=== PATIENT | male | born 1980 | race Caucasian/White ===

== ENCOUNTER → 2016-10-06 | Outpatient (CLI) | payer OTHER ==
[2016-10-06 09:30] LABS: ABSOLUTE BASOPHILS # (AUTO) 0.1 10^3/uL (0.0-0.2); ABSOLUTE EOSINOPHILS # (AUTO) 0.3 10^3/uL (0.0-0.6); ABSOLUTE LYMPHOCYTES (AUTO) 2.1 10^3/uL (0.5-4.7); ABSOLUTE MONOCYTES (AUTO) 0.8 10^3/uL (0.1-1.4); ABSOLUTE NEUT (AUTO) 4.3 10^3/uL (1.7-8.2); BASOPHILS % (AUTO) 0.8 % (0-2); EOSINOPHILS % (AUTO) 3.9 % (0-6); HEMATOCRIT 48.2 % (37.9-51.0); HEMOGLOBIN 16.8 g/dL (13.5-17.0); HGB HCT DIFFERENCE 2.2; LYMPHOCYTES % (AUTO) 27.8 % (13-45); MEAN CORPUSCULAR HEMOGLOBIN 30.4 pg (27.0-33.4); MEAN CORPUSCULAR HGB CONC 34.8 g/dL (32.0-36.0); MEAN CORPUSCULAR VOLUME 87 fl (80-97); MONOCYTES % (AUTO) 10.2 % (3-13); RED BLOOD COUNT 5.52 10^6/uL (4.35-5.55); RED CELL DISTRIBUTION WIDTH 12.9 % (11.5-14.0); SEGMENTED NEUTROPHILS % (AUTO) 57.3 % (42-78); WHITE BLOOD COUNT 7.6 10^3/uL (4.0-10.5)
[2016-10-06 09:45] LABS: ALANINE AMINOTRANSFERASE 91 U/L (21-72); ALBUMIN 4.3 g/dL (3.5-5.0); ALKALINE PHOSPHATASE 87 U/L (38-126); ANION GAP 14 (5-19); ASPARTATE AMINO TRANSFERASE 40 U/L (17-59); BILIRUBIN,DIRECT 0.3 mg/dL (0.0-0.4); BILIRUBIN,TOTAL 0.8 mg/dL (0.2-1.3); BLOOD UREA NITROGEN 12 mg/dL (7-20); CALCIUM 9.4 mg/dL (8.4-10.2); CARBON DIOXIDE 25 mmol/L (22-30); CHLORIDE 103 mmol/L (98-107); CHOLESTEROL 177.19 mg/dL (0-200); CREATININE RESULT 0.85 mg/dL (0.52-1.25); Direct HDL 35 mg/dL (>40); GLUCOSE 85 mg/dL (75-110); POTASSIUM 4.4 mmol/L (3.6-5.0); SODIUM 141.7 mmol/L (137-145); TOTAL PROTEIN 7.1 g/dL (6.3-8.2); TRIGLYCERIDES 181 mg/dL (<150)
[2016-10-06 09:56] LABS: DIRECT LDL 116 mg/dL (<100)
[2016-10-06 10:00] LABS: VLDL CHOLESTEROL 36.2 mg/dL (10-31)
== END ==
LOC: CCC 08:02
DX: I10 Essential (primary) hypertension (principal); L40.9 Psoriasis, unspecified
CPT/HCPCS: 36415; 80053; 80061; 83036; 84443; 85025

== ENCOUNTER → 2017-08-19 | Outpatient (CLI) | payer SELFPAY ==
[2017-08-19 10:23] LABS: ABSOLUTE BASOPHILS # (AUTO) 0.1 10^3/uL (0.0-0.2); ABSOLUTE EOSINOPHILS # (AUTO) 0.3 10^3/uL (0.0-0.6); ABSOLUTE LYMPHOCYTES (AUTO) 1.8 10^3/uL (0.5-4.7); ABSOLUTE MONOCYTES (AUTO) 0.6 10^3/uL (0.1-1.4); ABSOLUTE NEUT (AUTO) 3.9 10^3/uL (1.7-8.2); BASOPHILS % (AUTO) 1.2 % (0-2); HEMATOCRIT 49.5 % (37.9-51.0); HEMOGLOBIN 17.2 g/dL (13.5-17.0); LYMPHOCYTES % (AUTO) 27.1 % (13-45); MEAN CORPUSCULAR HEMOGLOBIN 30.1 pg (27.0-33.4); MEAN CORPUSCULAR HGB CONC 34.7 g/dL (32.0-36.0); MEAN CORPUSCULAR VOLUME 87 fl (80-97); MONOCYTES % (AUTO) 9.4 % (3-13); PLATELET COUNT 233 10^3/uL (150-450); RED BLOOD COUNT 5.72 10^6/uL (4.35-5.55); RED CELL DISTRIBUTION WIDTH 12.6 % (11.5-14.0); SEGMENTED NEUTROPHILS % (AUTO) 57.3 % (42-78); TOTAL CELLS COUNTED % (AUTO) 100 %; WHITE BLOOD COUNT 6.8 10^3/uL (4.0-10.5)
[2017-08-19 10:46] LABS: ALANINE AMINOTRANSFERASE 55 U/L (21-72); ALBUMIN 4.5 g/dL (3.5-5.0); ALKALINE PHOSPHATASE 71 U/L (38-126); ANION GAP 10 (5-19); ASPARTATE AMINO TRANSFERASE 33 U/L (17-59); BILIRUBIN,DIRECT 0.5 mg/dL (0.0-0.4); BILIRUBIN,TOTAL 0.7 mg/dL (0.2-1.3); BLOOD UREA NITROGEN 13 mg/dL (7-20); CALCIUM 10.2 mg/dL (8.4-10.2); CARBON DIOXIDE 26 mmol/L (22-30); CHLORIDE 105 mmol/L (98-107); GLUCOSE 78 mg/dL (75-110); POTASSIUM 4.1 mmol/L (3.6-5.0); SODIUM 140.9 mmol/L (137-145); TOTAL PROTEIN 7.4 g/dL (6.3-8.2)
[2017-08-20 10:38] LABS: HEPATITIS C VIRUS AB <0.1 s/co ratio (0.0-0.9); HEPATITS B SURFACE ANTIGEN Negative (Negative)
[2017-08-20 10:45] LABS: HEPATITIS B CORE AB TOT Negative (Negative); HEPATITIS B SURFACE AB QUANT <3.1 mIU/mL (Immunity>9.9)
== END ==
LOC: OD 08:37
PROVIDERS: ATTEND Physician Assistant
DX: L40.0 Psoriasis vulgaris (principal)
CPT/HCPCS: 36415; 80048; 80076; 85025; 86317; 86480; 86704; 86803; 86804; 87340

== ENCOUNTER → 2017-12-13 | Outpatient (CLI) | payer OTHER ==
--- NOTE | 2017-12-14 08:34 | RADIOLOGY REPORT (SQ) ---
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 TECHNIQUE: Sagittal and Axial imaging includes T1, T2, STIR and gradient echo sequences. Coronal T2/ HASTE imaging. LIMITATIONS: None. FINDINGS: VISUALIZED UPPER ABDOMEN: Limited evaluation. No acute or suspicious findings suggested. SEGMENTATION: No transitional anatomy. The lowest well-developed disc space is labeled L5-S1. ALIGNMENT: Anatomic. VERTEBRAE: Intact. BONE MARROW: Normal. No marrow replacement or reactive changes. DISC SIGNAL: Normal. No significant abnormal signal or loss of height. POSTERIOR ELEMENTS: Generally intact. No pars defect evident. HARDWARE: None in the spine. CORD AND CONUS: Normal in size and signal intensity. Conus at the appropriate level. SOFT TISSUES: No aortic aneurysm seen. No bulky retroperitoneal adenopathy or mass. No paraspinal mas s or fluid. L1-L2: No significant spinal stenosis or exit foraminal stenosis. L2-L3: No significant spinal stenosis or exit foraminal stenosis. L3-L4: No significant spinal stenosis or exit foraminal stenosis. L4-L5: Small central disc protrusion. Mild to moderate facet arthropathy. No significant spinal mohamud nosis or exit foraminal stenosis. L5-S1: Central disc protrusion/ herniation. Impingement of the right and left S1 nerve roots. Mild to moderate facet arthropathy. Mild to moderate spinal stenosis. Mild exit foraminal stenosis. LOWER THORACIC: Incompletely imaged. No stenosis seen. SACRUM: Visualized upper sacrum intact. OTHER: No other significant findings. IMPRESSION: DEGENERATIVE CHANGES IN THE LOWER LUMBAR SPINE DESCRIBED ABOVE. TECHNICAL DOCUMENTATION: JOB ID: [id number] [employer]- All Rights Reserved Reading location - IP/workstation name: [email or web address]
== END ==
LOC: RAD 19:17
DX: M45.5 Ankylosing spondylitis of thoracolumbar region (principal); M47.812 Spondylosis without myelopathy or radiculopathy, cervical region
CPT/HCPCS: 72148

== ENCOUNTER 2017-12-20 20:35 | Emergency (ER) | payer OTHER ==
[2017-12-20] MEDS ORDERED: HYDROMORPHONE HCL INJ/PF 2 MG/ML AMPULE IM ONE (22:53)
[2017-12-20] MEDS ORDERED: FENTANYL CITRATE INJ/PF 100 MCG/2 ML AMPUL IM ONE (23:06)
--- NOTE | 2017-12-20 23:12 | ER Document Report ---
ED General - General Chief Complaint: Back Pain Stated Complaint: BILATERIAL LEG NUMBNESS Time Seen by Provider: 12/20/17 22:38 Notes: Patient is a 37-year-old male who presents with complaint of pain in his back with pain and numbness going into his legs. Patient says that he has been doing with this for about 2 months. He had an MRI performed on December 12. This MRI showed the mild to moderate central disc protrusion at L5-S1. He was on gabapentin. He did stop this because it was not helping. [facility] was referred [facility]. He said there he was told that he was not a candidate for surgery as of yet. He has not been referred to physical therapy. Denies any fevers. Denies any loss of bowel control. He does admit to some urinary retention. He says over the last 3-4 days has pain and has gotten much worse over his left leg. Says is more in the lateral aspect of his left hip and left leg and going down his left leg. He is able to walk but has pain and difficulty in doing so. No loss of bowel control. He says he is able to urinate but feels sometimes as if he does not fully empty his bladder. No recent fevers or infections. No new injuries. No other complaints at this time. TRAVEL OUTSIDE OF THE [place] IN LAST 30 DAYS: No - Related Data Allergies/Adverse Reactions: No Known Allergies Allergy (Verified 12/20/17 20:37) Past Medical History - Social History Smoking Status: Unknown if Ever Smoked Frequency of alcohol use: None Drug Abuse: None Family History: Reviewed & Not Pertinent - Past Medical History Cardiac Medical History: Reports: Hx Hypercholesterolemia Past Surgical History: Reports: Hx Appendectomy - Immunizations Hx Diphtheria, Pertussis, Tetanus Vaccination: No Review of Systems - Review of Systems Notes: My Normal Review Basic REVIEW OF SYSTEMS: CONSTITUTIONAL : Denies fever, chills, or sweats. Denies recent illness. GASTROINTESTINAL: Denies abdominal pain. Denies nausea, vomiting, or diarrhea. No loss of bowel control. MUSCULOSKELETAL: Pain down left leg. Pain in back. SKIN: Denies rash or skin lesions. NEUROLOGICAL: Denies altered mental status or loss of consciousness. Denies headache. Weakness in left leg. Burning and pain down left leg. ALL OTHER SYSTEMS REVIEWED AND NEGATIVE. Physical Exam - Vital signs Vitals: Temp Pulse Resp BP Pulse Ox 98.0 F 105 H 22 H 133/76 H 100 12/20/17 20:43 12/20/17 20:43 12/20/17 20:43 12/20/17 20:43 12/20/17 20:43 - Notes Notes: General Appearance: Well nourished, alert, cooperative, no acute distress, moderate to severe obvious discomfort. Vitals: reviewed, See vital signs table. Head: no swelling or tenderness to the head Eyes: PERRL, EOMI, Conjuctiva clear Mouth: No decreasd moisture Lungs: No wheezing, No rales, No rhonci, No accessory muscle use, good air exchange bilaterally. Heart: Normal rate, Regular rythm, No murmur, no rub Abdomen: Normal BS, soft, No rigidity, No abdominal tenderness, No guarding, no rebound, no abdominal masses, no organomegaly Rectal exam: Normal rectal tone. No saddle anesthesia. Back: Pain is present has pain to palpation mainly of the left side of the lumbar spine that is much worse over the L5-S1 and also central over L5-S1. Extremities: Patient has good strength with plantar dorsiflexion against resistance of the right foot. Patient has diminished strength with both plantar and dorsiflexion against resistance of the left foot. She has pain to palpation with any touch of the posterior or lateral left thigh as well as pain over the left calf and into the left foot., good pulses in all extremities, no swelling or tenderness in the extremities, no edema. Skin: warm, dry, appropriate color, no rash Neuro: speech clear, oriented x 3, normal affect, responds appropriately to questions. Achilles reflexes are equal bilaterally. Patient is able to stand and walk. He does have pain when he bears weight onto his left leg. When he picks up his left foot he does not have any footdrop. No foot drop with the right foot either. Course - Re-evaluation Re-evalutation: 12/20/17 23:12 Patient is a significant amount of pain. I therefore will give patient dose of pain medicine and have him stand and walk and use the bathroom. I will then do a postvoid residual ultrasound to see how much urine is left in his bladder. 12/20/17 23:59 I did do a bedside ultrasound the patient's bladder after he voided. Patient's bladder is flat with very little urine in it. 12/21/17 00:06 Patient symptoms do line up with his MRI findings from a few days ago. He has seen orthopedist but was unhappy with his visit to orthopedist as he felt like he did not get much direction. He has not had any referrals to physical therapy as of yet. On exam patient does not have any foot drop he does have some weakness with plantar dorsiflexion on left in comparison to the right. He has not had loss of bowel control. He does not have any urinary retention and his postvoid residual ultrasound. He does not have any saddle anesthesia. I do not see evidence for emergent referral to neurosurgeon flo. I will refer him to neurosurgery palpation only. I given the phone numbers both Dr. Flynn and Dr. Garay. Informed him to call them to make a close follow-up appointment. I did talk to him about the signs and symptoms for which she would need to return to ER immediately. Informed to return to ER immediately if he has worsening weakness, worsening numbness, loss of bowel control, urinary retention, or feels that he is worsening in any way. Also given crutches as patient says he is not having as much pain as if he is not bearing weight onto the left leg. Also will have him start the gabapentin. The pain going into his left leg symptoms started soon as he discontinued taking the gabapentin. I will have him restart the gabapentin. He says he has plenty his meds at home and says he will restart them and I explained to him why the gabapentin helps diminish the amount of referred or radicular pain. Patient is understanding of this and agrees to restarting the gabapentin again. Dictation of this chart was performed using voice recognition software; therefore, there may be some unintended grammatical errors. 12/21/17 00:08 - Vital Signs Vital signs: Temp Pulse Resp BP Pulse Ox 98.0 F 105 H 22 H 133/76 H 100 12/20/17 20:43 12/20/17 20:43 12/20/17 20:43 12/20/17 20:43 12/20/17 20:43 Discharge - Discharge Clinical Impression: Back pain Qualifiers: Back pain location: low back pain Chronicity: chronic Back pain laterality: left Sciatica presence: with sciatica Sciatica laterality: sciatica of left side Qualified Code(s): M54.42 - Lumbago with sciatica, left side Condition: Good Disposition: HOME, SELF-CARE Instructions: Oral Narcotic Medication ([facility]) Additional Instructions: Please only take the [place] as needed for severe breakthrough pain. Do not take on a regular basis as these medicines can become addictive. Please call Dr. Sindi Garya's office to make a close follow-up appointment. They are neurosurgeons who specializes in back surgery. Please return to the ER immediately if you have loss of control her bowel function, inability to urinate , worsening weakness in her leg, or if her pain is intractable. Please follow- up closely with your primary care doctor as well for reevaluation. Please use the crutches to remain nonweightbearing off your left leg. Please start taking her Gabapentin again as this helps prevent that severe pain that radiates down her left leg that he started to have when he discontinued the medication. Return to the ER anytime if you have any further concerns. Prescriptions: Hydrocodone/Acetaminophen [[place] 5-325 mg Tablet] 1 tab PO Q4 PRN #16 tablet PRN Reason: For Breakthrough Pain Referrals: DEJAN FLYNN MD [NO LOCAL MD] - (call for a close follow up appointment.) WHITLEY GARAY MD [NO LOCAL MD] - (Call for a close follow up appointment.)
[2017-12-21] MEDS ORDERED: HYDROCODONE/ACETAMINOPHEN 5-325 MG (6 TAB/ER DISP) PO PRN
[2017-12-21 00:59] VITALS: BP 114/66
== END 2017-12-21 00:59 | disposition home or self-care (01) ==
LOC: ER 20:35
DX: M54.42 Lumbago with sciatica, left side (principal); M54.9 Dorsalgia, unspecified; M62.81 Muscle weakness (generalized); M79.605 Pain in left leg; R20.0 Anesthesia of skin; R33.9 Retention of urine, unspecified
CPT/HCPCS: 99284; 96372; J3010

== ENCOUNTER → 2019-06-27 | Outpatient (CLI) | payer OTHER ==
[2019-06-27 12:45] LABS: ABSOLUTE BASOPHILS # (AUTO) 0.1 10^3/uL (0.0-0.2); ABSOLUTE EOSINOPHILS # (AUTO) 0.3 10^3/uL (0.0-0.6); ABSOLUTE MONOCYTES (AUTO) 0.7 10^3/uL (0.1-1.4); ABSOLUTE NEUT (AUTO) 4.8 10^3/uL (1.7-8.2); BASOPHILS % (AUTO) 0.8 % (0-2); HEMATOCRIT 49.6 % (37.9-51.0); HEMOGLOBIN 17.2 g/dL (13.5-17.0); MEAN CORPUSCULAR HEMOGLOBIN 30.6 pg (27.0-33.4); MEAN CORPUSCULAR HGB CONC 34.6 g/dL (32.0-36.0); MEAN CORPUSCULAR VOLUME 89 fl (80-97); MONOCYTES % (AUTO) 8.7 % (3-13); PLATELET COUNT 240 10^3/uL (150-450); RED CELL DISTRIBUTION WIDTH 12.9 % (11.5-14.0); SEGMENTED NEUTROPHILS % (AUTO) 60.5 % (42-78); TOTAL CELLS COUNTED % (AUTO) 100 %; WHITE BLOOD COUNT 7.9 10^3/uL (4.0-10.5)
[2019-06-27 13:04] LABS: ALBUMIN 4.5 g/dL (3.5-5.0); ALKALINE PHOSPHATASE 113 U/L (38-126); ANION GAP 11 (5-19); ASPARTATE AMINO TRANSFERASE 53 U/L (17-59); BILIRUBIN,DIRECT 0.1 mg/dL (0.0-0.4); BILIRUBIN,TOTAL 0.7 mg/dL (0.2-1.3); BLOOD UREA NITROGEN 12 mg/dL (7-20); CALCIUM 9.3 mg/dL (8.4-10.2); CARBON DIOXIDE 27 mmol/L (22-30); CHLORIDE 101 mmol/L (98-107); GLUCOSE 82 mg/dL (75-110); POTASSIUM 4.1 mmol/L (3.6-5.0); TOTAL PROTEIN 7.7 g/dL (6.3-8.2)
== END ==
LOC: OD 11:26
PROVIDERS: ATTEND Physician Assistant
DX: L40.0 Psoriasis vulgaris (principal); L21.8 Other seborrheic dermatitis; L29.8 Other pruritus; Z79.899 Other long term (current) drug therapy
CPT/HCPCS: 36415; 80048; 80076; 85025; 86480